=== PATIENT | female | born 1985 | race Caucasian/White ===

== ENCOUNTER 2019-01-27 15:57 | Emergency (ER) | payer OTHER ==
--- NOTE | 2019-01-27 16:07 | PDOC ---
Rapid Medical Evaluation Time Seen by Provider: 01/27/19 16:05 Medical Evaluation: Allergies Allergy/AdvReac Type Severity Reaction Status Date / Time No Known Drug Allergies Allergy Verified 01/27/19 16:03 01/27/19 16:05 CC: "I was bitten by a yellow spider at work." PE: quarter sized area of erythema with brown discoloration to center (pt reports applying liquid to wound which caused discoloration) Orders: nothing Pt will proceed to ER for further evaluation. Discharge Disposition - Diagnosis Insect bite - Referrals - Patient Instructions - Post Discharge Activity
[2019-01-27 16:08] VITALS: BP 114/64; PULSE 68; TEMP 98.9; BMI 31.7
--- NOTE | 2019-01-27 16:30 | PDOC ---
History of Present Illness - General Stated Complaint: RT ARM SPIDER BITE Time Seen by Provider: 01/27/19 16:05 - History of Present Illness Initial Comments: 01/27/19 16:25 33 y/o F w/o CM presents for evaluation of a spider bite on the lateral aspect of the right upper arm. Pt states she saw the spider on her arm and killed it. The area started to become red and painful. Past History - Past Medical History Allergies/Adverse Reactions: Allergies Allergy/AdvReac Type Severity Reaction Status Date / Time No Known Drug Allergies Allergy Verified 01/27/19 16:03 Home Medications: Ambulatory Orders Cephalexin [Keflex] 500 mg PO QID #40 capsule 01/27/19 Sulfamethoxazole/Trimethoprim [Bactrim Ds -] 1 tab PO BID #14 tablet 01/27/19 - Psycho Social/Smoking Cessation Hx Smoking History: Never smoked Have you smoked in the past 12 months: No Information on smoking cessation initiated: No Hx Alcohol Use: No Drug/Substance Use Hx: No Review of Systems - Review of Systems Integumentary: Yes: Lesions *Physical Exam - Vital Signs Last Vital Signs Temp Pulse Resp BP Pulse Ox 98.9 F 68 16 114/64 99 01/27/19 16:04 01/27/19 16:04 01/27/19 16:04 01/27/19 16:04 01/27/19 16:04 - Physical Exam Comments: 01/27/19 16:28 There is about a 4 cm circumferential area of erythema about the superior lateral aspect of the R UE without induration, no areas of fluctuance. NVID Medical Decision Making - Medical Decision Making 01/27/19 16:30 Will give abx and close f/u with PCP Discharge - Discharge Information Problems reviewed: Yes Clinical Impression/Diagnosis: Insect bite Disposition: HOME - Admission No - Follow up/Referral - Patient Discharge Instructions Additional Instructions: Please take the antibiotics as directed. Without fail, please follow up with your primary care physician in 1-2 days for further evaluation and treatment options. Return to the emergency room should symptoms worsen. - Post Discharge Activity
== END 2019-01-27 16:38 | disposition home or self-care (01) ==
LOC: JERFT 15:57
DX: S40.861A Insect bite (nonvenomous) of right upper arm, initial encounter (principal); L08.9 Local infection of the skin and subcutaneous tissue, unspecified; W57.XXXA Bitten or stung by nonvenomous insect and other nonvenomous arthropods, initial encounter; Y93.89 Activity, other specified; Y92.59 Other trade areas as the place of occurrence of the external cause; Y99.0 Civilian activity done for income or pay
CPT/HCPCS: 99281-25